=== PATIENT | male | born 1980 | race Two or more races ===

== ENCOUNTER 2016-11-20 20:32 | Emergency (ER) | payer SELFPAY ==
[~2016-11-20] VITALS: Ht 177.8 cm; Wt 74.8 kg
[2016-11-20] MEDS ORDERED: LEVE500T9 PO (20:42)
[2016-11-20 20:51] LABS: BASOPHILS # (AUTO) 0.2 /CMM (0.0-0.2); BASOPHILS % (AUTO) 1.1 % (0.0-2.0); DIFF TOTAL % 100 %; EOSINOPHILS # (AUTO) 0.1 /CMM (0.0-0.7); HEMATOCRIT 46 % (39-51); HEMOGLOBIN 15.4 g/dL (13.5-17.5); LYMPHOCYTES # (AUTO) 5.9 /CMM (0.8-4.8); LYMPHOCYTES % (AUTO) 39.7 % (20.0-44.0); MEAN CORPUSCULAR HEMOGLOBIN 31 PG (26.0-33.0); MEAN CORPUSCULAR HGB CONC 34 g/dl (31.0-36.0); MEAN CORPUSCULAR VOLUME 91 fL (80-96); MONOCYTES # (AUTO) 1.1 /CMM (0.1-1.30); MONOCYTES % (AUTO) 7.6 % (2.0-12.0); NEUTROPHILS # (AUTO) 7.5 /CMM (1.8-8.9); NEUTROPHILS % (AUTO) 50.6 % (43.0-81.0); PLATELET COUNT (AUTO) 365 /CMM (150-450); RED BLOOD CELL COUNT(AUTO) 5.07 MIL/uL (4.5-6.0); WHITE BLOOD COUNT (AUTO) 14.8 K/uL (4.3-11.0)
[2016-11-20] MEDS ORDERED: IV NS 0.9% 1,000 ML ONE ×2 (20:52→21:22)
[2016-11-20] MEDS ORDERED: IV NS 0.9% 0 ML IV ONE (20:52)
[2016-11-20] MEDS ORDERED: IV SET PRIMARY 1 EA INFUS.SET MC ONE ×2 (20:52→21:22)
[2016-11-20] MEDS ORDERED: ONDANSETRON HCL/PF 4 MG/2 ML VIAL ONE (20:52)
[2016-11-20] MEDS ORDERED: LORAZEPAM INJ 2 MG/ML VIAL ONE (20:53)
[2016-11-20] MEDS ORDERED: LEVETIRACETAM (500MG) 500 MG/5 ML VIAL IV ONE (20:53)
[2016-11-20] MEDS ORDERED: IV NS 0.9% 100 ML IV ONE (20:54)
[2016-11-20 20:58] LABS: CALCIUM, SERUM 9.4 mg/dL (8.5-10.1); CREATININE 1.6 mg/dL (0.6-1.3); POTASSIUM 3.6 mmol/L (3.5-5.1)
[2016-11-20] MEDS ORDERED: LORAZEPAM INJ 2 MG/ML VIAL IVP ONE (21:00)
[2016-11-20] MEDS ORDERED: LEVETIRACETAM (500MG) 500 MG in IV NS 0.9% 100 ML IV ONE (21:00)
[2016-11-20] MEDS ORDERED: ONDANSETRON HCL/PF 4 MG/2 ML VIAL IVP ONE (21:00)
[2016-11-20] MEDS ORDERED: IV NS 0.9% 1,000 ML BAG IV ONE ×2 (21:00→21:30)
[2016-11-20 21:03] LABS: ALBUMIN 4.1 g/dL (3.4-5.0); BILIRUBIN,DIRECT 0.1 mg/dL (0.0-0.2); BILIRUBIN,TOTAL 0.3 mg/dL (0.2-1.0); INDIRECT BILIRUBIN 0.2 mg/dL (0.0-1.1); TOTAL PROTEIN, SERUM 7.6 g/dL (6.4-8.2)
[2016-11-20] MEDS ORDERED: ACETAMINOPHEN 325 MG TABLET ONE (21:19)
[2016-11-20] MEDS ORDERED: IBUPROFEN 600 MG TABLET PO ONE ×2 (21:20→21:30)
[2016-11-20] MEDS ORDERED: ACETAMINOPHEN ES 500 MG TABLET PO ONE (21:30)
[2016-11-20] MEDS ORDERED: KETOROLAC TROMETHAMINE 15 MG/ML VIAL ONE (21:51)
[2016-11-20] MEDS ORDERED: KETOROLAC TROMETHAMINE INJ 30 MG/ML VIAL IV ONE (22:00)
[2016-11-20 22:19] VITALS: BP 120/81
== END 2016-11-20 22:21 | disposition home or self-care (01) ==
LOC: ER 20:35
DX: R56.9 Unspecified convulsions (principal); N17.9 Acute kidney failure, unspecified
CPT/HCPCS: 36415; 80048; 80076; 85025; 96361; 96365; 96375; 99285; A4606; J1885; J1953; J2060; J2405; J7030 ×3; Z7610; J7040